=== PATIENT | female | born 1985 | race Caucasian/White ===

== ENCOUNTER → 2020-03-28 11:58 | Outpatient (BNVA) | payer MEDICAID, SELFPAY | PROVIDERS: Family Provider Family Medicine; PCP Family Medicine; Visit Provider Nurse Practitioner Family | DX: R39.9 Unspecified symptoms and signs involving the genitourinary system (principal) | CPT/HCPCS: 81000 ==

== ENCOUNTER 2022-03-11 19:27 | Emergency (ER) | payer MEDICAID, SELFPAY ==
[2022-03-11 19:28] VITALS: BMI 22.4
[2022-03-11 19:32] VITALS: BP 129/82; PULSE 90; RESP 16; TEMP 37.1; O2SAT 98
--- NOTE | 2022-03-11 19:39 | XRR_ITS ---
PROCEDURE INFORMATION: Exam: XR Chest Exam date and time: 03/11/2022 7:50 PM Age: 37 years old Clinical indication: Patient HX: Fentanyl overdose. TECHNIQUE: Imaging protocol: Radiologic exam of the chest. Views: 1 view. COMPARISON: CR Chest 2 views* [id number] 12/08/2018 8:29 AM FINDINGS: Lungs: No consolidation. Pleural spaces: Unremarkable. No pleural effusion. No pneumothorax. Heart/Mediastinum: No cardiomegaly. Bones/joints: No acute findings. XR/XR chest 1V portable [id number] IMPRESSION: No acute findings.
--- NOTE | 2022-03-11 19:39 | ECG_ITS ---
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 Measurements Intervals [place] Rate: 87 P: 78 AR: 183 QRS: 76 QRSD: 97 T: 50 QT: 379 QTc: 456 Interpretive Statements SINUS RHYTHM ANTEROSEPTAL MYOCARDIAL INFARCTION , OF INDETERMINATE AGE [40+ ms Q WAVE IN V1-V4] INTERPRETATION BASED ON A DEFAULT AGE OF 40 YEARS No previous ECG available for comparison Electronically Signed On 03-12-2022 9:31:01 CDT by Samy Wells M.D. [id number] f
[2022-03-11] MEDS: ondansetron 2 mg/ML SDV 2 mL 4 MG IVP (19:51)
[2022-03-11] MEDS: sodium chloride 0.9% 1,000 ML 999 ML IV (19:51)
[2022-03-11 20:14] LABS: Alanine Aminotransferase 27 U/L (0-33); Albumin Level 3.9 g/dL (3.5-5.2); Alkaline Phosphatase 69 IU/L (35-105); Blood Urea Nitrogen 13 mg/dL (6-20); Calcium 8.5 mg/dL (8.5-10.5); Carbon Dioxide 27 mmol/L (22-29); Chloride 100 mmol/L (98-107); Globulin 2.5 g/dL (1.3-4.6); Glomerular Filtration Rate 80.3 mL/min (90-130); Glucose 127 mg/dL (65-115); Osmolality Calculated 290 mOsm/kg (285-295); Sodium 139 mmol/L (136-145); Total Bilirubin 0.2 mg/dL (0.15-1.2); Total Protein 6.4 g/dL (6.6-8.7)
[2022-03-11 20:15] LABS: Alcohol Level < 10 mg/dL (0-10); Anion Gap 16.1 (5-19); Aspartate Amino Transferase 22 U/L (0-32); Potassium 4.1 mmol/L (3.5-5.1)
[2022-03-11 20:41] LABS: HCG, Serum Qual Negative (Negative)
[2022-03-11 20:43] VITALS: BP 113/69; PULSE 67; RESP 19; O2SAT 96
[2022-03-11 21:41] VITALS: BP 122/81; PULSE 71; RESP 14; O2SAT 96
--- NOTE | 2022-03-11 22:16 | ED_ITS ---
HPI - Overdose General: Chief Complaint: Overdose Stated Complaint: Overdose Time Seen by Provider: 03/11/22 19:31 Source: patient and EMS History of Present Illness: 37-year-old female brought in by EMS. She was found not responding in her car at a local gas station. She essentially overdosed on fentanyl. She was evidently breathing but not responding. She did not initially respond to 0.4 mg of Narcan, but did respond to 1.6 mg total. She presents lethargic but talking appropriately, and oxygenating well. She denies wishes or thoughts to hurt herself. She was using the drug recreationally. complaint: accidental overdose Onset (ago): minute(s) Intent: other Context: Accidental Overdose: wanted to get high Treatments Prior to Arrival: oxygen, narcan and IV fluids Review of Systems Const: Denies: fever(s) ENMT: Denies: throat pain or nasal discharge Card: Denies: chest pain Resp: Denies: dyspnea GI: Reports: nausea; Denies: vomiting Neuro: Reports: headache(s) PFS ED PFSH: Social History Smoking and tobacco status: current every day smoker cigarettes and e-cigare ttes E-Cigarette Details: vaporizer device Alcohol intake: never History of recent travel: No Female Reproductive History: Date of last menstrual period: 02/24/20 Physical Exam Const: GENERAL APPEARANCE: cooperative and ill appearing (Mildly) NUTRITIONAL APPEARANCE: thin HENMT: COMMON NORMALS: normocephalic, atraumatic and Normal external nose present HEAD & SCALP: normocephalic and atraumatic FACE & SINUS: normal facial exam and face symmetric NOSE: Normal external nose present and Normal nares present Eye: COMMON NORMALS: Equal, round and reactive pupils present and EOMs intact bilaterally PUPIL: Yes Equal, round and reactive pupils present Neck/C-Spine: GENERAL: Yes trachea midline Chest: COMMONS NORMALS: normal inspection of the chest CHEST: Yes Symmetrical chest wall rise Resp: COMMON NORMALS: normal respiratory effort, No use of accessory muscles and clear to auscultation bilaterally AUSCULTATION: clear to auscultation bilaterally Cardio: COMMON NORMALS: regular rate and regular rhythm RATE: regular rate RHYTHM: regular rhythm GI: COMMON NORMALS: Normal to inspection, nondistended, normoactive bowel sounds present, Soft to palpation and non-tender PALPATION: Yes Soft to palpation Extremity: COMMON NORMALS: capillary refill normal and no pedal edema Neuro: RENETTA COMA SCALE: document GCS findings [place] coma scale eye opening: Spontaneous Renetta coma scale verbal response: Orientated Renetta coma scale motor response: Obey commands Renetta coma scale total score: 15 CRANIA L NERVES: Yes CN normal except as noted SPEECH: speech normal Psych: COMMON NORMALS: cooperative Course Vital Signs: Vital signs: Vital Signs Temperature 98.8 F 03/11/22 19:32 Pulse Rate 71 03/11/22 21:41 Respiratory Rate 14 03/11/22 21:41 Blood Pressure 122/81 03/11/22 21:41 Pulse Oximetry 96 03/11/22 21:41 Oxygen Delivery Me thod 03/11/22 21:41 Oxygen Flow Rate 2 03/11/22 21:41 MDM - Overdose Medical Decision Making No repeated dosages of Narcan required. Patient is not requiring oxygen. Current saturations 97%, heart rate sinus at 70. EKG shows no acute ST changes. Normal axis and intervals. Last blood pressure is 122/81. BMP is normal. She maintains that she was not trying to harm her self. She will be allowed discharge in the custody of a sober adult Lab Data : 03/11/22 21:50 03/11/22 19:45 Radiology Impressions Chest X-Ray 03/11/22 19:39 IMPRESSION: No acute findings. Laboratory Results WBC Cancelled 03/11/22 21:39 Corrected WBC Cancelled 03/11/22 21:39 RBC Cancelled 03/11/22 21:39 Hgb Cancelled 03/11/22 21:39 Hct Cancelled 03/11/22 21:39 MCV Cancelled 03/11/22 21:39 MCH Cancelled 03/11/22 21:39 MCHC Cancelled 03/11/22 21:39 RDW Cancelled 03/11/22 21:39 Plt Count Cancelled 03/11/22 21:39 MPV Cancelled 03/11/22 21:39 Gran % Cancelled 03/11/22 21:39 Neut % (Auto) Cancelled 03/11/22 21:39 Lymph % (Auto) Cancelled 03/11/22 21:39 [place] % (Auto) Cancelled 03/11/22 21:39 Eos % (Auto) Cancelled 03/11/22 21:39 Baso % (Auto) Cancelled 03/11/22 21:39 Neut # (Auto) Cancelled 03/11/22 21:39 Lymph # (Auto) Cancelled 03/11/22 21:39 [place] # (Auto) Cancelled 03/11/22 21:39 Eos # (Auto) Cancelled 03/11/22 21:39 Baso # (Auto) Cancelled 03/11/22 21:39 Absolute Gran (auto) Cancelled 03/11/22 21:39 Nucleated RBC % (auto) Cancelled 03/11/22 21:39 Nucleated RBCs # Cancelled 03/11/22 21:39 Sodium 139 mmol/L (136-145) 03/11/22 19:45 Potassium 4.1 mmol/L (3.5-5.1) 03/11/22 19:45 Chloride 100 mmol/L (98-107) 03/11/22 19:45 Carbon Dioxide 27 mmol/L (22-29) 03/11/22 19:45 Anion Gap 16.1 (5-19) 03/11/22 19:45 BUN 13 mg/dL (6-20) 03/11/22 19:45 Creatinine 0.8 mg/dL (0.5-0.9) 03/11/22 19:45 GFR Calculation 80.3 mL/min (90-130) L 03/11/22 19:45 Glucose 127 mg/dL (65-115) H 03/11/22 19:45 Calculated Osmolality 290 mOsm/kg (285-295) 03/11/22 19:45 Calcium 8.5 mg/dL (8.5-10.5) 03/11/22 19:45 Total Bilirubin 0.2 mg/dL (0.15-1.2) 03/11/22 19:45 AST 22 U/L (0-32) 03/11/22 19:45 ALT 27 U/L (0-33) 03/11/22 19:45 Alkaline Phosphatase 69 IU/L (35-105) 03/11/22 19:45 Total Protein 6.4 g/dL (6.6-8.7) L 03/11/22 19:45 Albumin 3.9 g/dL (3.5-5.2) 03/11/22 19:45 Globulin 2.5 g/dL (1.3-4.6) 03/11/22 19:45 HCG, Qual Negative (Negative) 03/11/22 20:22 Ethyl Alcohol < 10 mg/dL (0-10) 03/11/22 19:45 Discharge Plan Discharge Patient Disposition: Home Clinical Impression: Opiate or related narcotic overdose Qualifiers: Encounter type: initial encounter Injury intent: accidental or unintentional Qualified Code(s): T40.601A - Poisoning by unspecified narcotics, accidental (unintentional), initial encounter Condition: Stable Prescriptions: New naloxone 4 mg/actuation spray,non-aerosol 4 mg intranasal Q2M PRN (Reason: opioid overdose) Qty: 2 0RF Rx Instructions: spray 1 dose into ONE nostril; alternate nostrils w each dose until help arrives No Action clonidine HCl 0.1 mg tablet 0.1 mg PO TID eszopiclone [Lunesta] 3 mg tablet PO .nightly dextroamphetamine-amphetamine [Adderall] 20 mg tablet 20 mg PO DAILY ciprofloxacin HCl [Cipro] 250 mg tablet 250 mg PO BID 5 Days Qty: 10 0RF Discharge Orders: Discharge ED (Routine); Ordered 03/11/22 Ordered By: Kenny Ronquillo Referrals: Lolis Taylor DO [Primary Care Provider] - 1-3 days Discharge Diet: Advance as tolerated Discharge Activity: Increase activity as tolerated Patient Instructions: Prescription Opioid Overdose (ED), Opioid Safety Activity Restrictions/Additional Instructions: Return for any problems. Return for any thoughts or wishes to harm your self or anyone else. Coding Level of Care Code ED Dosimetrist for Martin Cramer
--- NOTE | 2022-03-11 22:31 | PC.NURSE ---
Asked pt who I should contact to pick her up from the ED, she advised her boyfriend, Hong, . Attempted to call Hong X2, no answer and no voicemail to leave a message. Tried to call son, Ilan, but phone number listed is not an active number
[2022-03-11 22:33] VITALS: BP 123/89; PULSE 109; RESP 13; O2SAT 97
--- NOTE | 2022-03-11 22:41 | PC.NURSE ---
Attempted to call pt son, Desean, , male voice answered but disconnected after I identified myself. Attempted to call back multiple times, no answer, not able to leave a voicemail
[2022-03-11 22:46] LABS: Basophils % 0.1 %; Eosinophils # 0.1 10^3/uL (0.0-0.8); Eosinophils % 0.7 %; Hematocrit 32.4 % (37.0-47.0); Hemoglobin 11.1 g/dL (11.5-15.3); Lymphocytes # 0.9 10^3/uL (0.8-4.8); Lymphocytes % 12.9 %; Mean Corpuscular HGB Conc 34.3 g/dL (30.0-36.0); Mean Corpuscular Hemoglobin 30.2 pg (28.0-34.0); Mean Corpuscular Volume 88.3 fl (81-99); Monocytes # 0.4 10^3/uL (0.2-0.9); Monocytes % 5.6 %; Neutrophils # 5.49 10^3/uL (1.8-7.7); Neutrophils % 80.4 %; Nucleated Red Blood Cells % 0 %; Platelet Count 100 10^3/cmm (130-400); Red Blood Count 3.67 10^6/uL (4.1-5.3); Red Cell Distribution Width 13.2 % (12.1-15.1); White Blood Count 6.8 10^3/uL (4.0-10.0)
[2022-03-11 22:47] LABS: Slide Review Slide Review Perform
--- NOTE | 2022-03-11 22:47 | PC.NURSE ---
Pt fer Anton called back to ED, advised he or Hong will come to supervisor of operations pt
--- NOTE | 2022-03-11 22:54 | PC.NURSE ---
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
[2022-03-11 23:10] VITALS: BP 148/97; PULSE 85; RESP 16; O2SAT 96
== END 2022-03-11 23:11 | disposition home or self-care (01) ==
PROVIDERS: Emergency Provider Emergency Medicine; PCP Family Medicine
DX: T40.411A Poisoning by fentanyl or fentanyl analogs, accidental (unintentional), initial encounter (principal); F17.290 Nicotine dependence, other tobacco product, uncomplicated
CPT/HCPCS: 71045; 80053; 80307; 84703; 85025; 93005; 96361; 96374; 99285; J2405; J7030

== ENCOUNTER → 2023-04-16 09:17 | Outpatient (BNVA) | payer MEDICAID, SELFPAY | PROVIDERS: PCP Family Medicine; Visit Provider Nurse Practitioner Family | DX: R68.89 Other general symptoms and signs (principal); J00 Acute nasopharyngitis [common cold]; H69.93 Unspecified Eustachian tube disorder, bilateral | CPT/HCPCS: 87426 ==

== ENCOUNTER → 2023-09-08 14:07 | Outpatient (BNVA) | payer MEDICAID, SELFPAY | PROVIDERS: PCP Family Medicine; Visit Provider Nurse Practitioner Family | DX: N39.0 Urinary tract infection, site not specified (principal); R10.9 Unspecified abdominal pain | CPT/HCPCS: 81000; 87086 ==

== ENCOUNTER 2023-11-19 17:37 | Emergency (ER) | payer MEDICAID, SELFPAY ==
[2023-11-19 17:38] VITALS: BMI 24.3
[2023-11-19 17:44] VITALS: BP 117/82; PULSE 87; RESP 16; TEMP 36.9; O2SAT 98
--- NOTE | 2023-11-19 17:51 | ECG_ITS ---
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 Measurements Intervals [place] Rate: 68 P: 70 MT: 168 QRS: 54 QRSD: 109 T: 49 QT: 368 QTc: 391 Interpretive Statements SINUS RHYTHM INCOMPLETE RIGHT BUNDLE BRANCH BLOCK [90+ ms QRS DURATION, TERMINAL R IN V1/V2, 40+ ms S IN I/aVL/V4/V5/V6] Possible old septal DC MINIMAL ST DEPRESSION [0.025+ mV ST DEPRESSION] Compared to ECG 03/11/2022 19:39:34 Incomplete right bundle-branch block now present ST (T wave) deviation now present Myocardial infarct finding no longer present Electronically Signed On 11-19-2023 21:29:11 CDT by Delphine Ruffin M.D. [id number]
--- NOTE | 2023-11-19 17:51 | CTR_ITS ---
PROCEDURE INFORMATION: Exam: CT Lumbar Spine Without Contrast Exam date and time: 11/19/2023 7:30 PM Age: 38 years old Clinical indication: Low back pain; Additional info: Back pain, urinary incontinence TECHNIQUE: Imaging protocol: Computed tomography of the lumbar spine without contrast. Radiation optimization: All CT scans at this facility use at least one of these dose optimization techniques: automated exposure control; mA and/or kV adjustment per patient size (includes targeted exams where dose is matched to clinical indication); or iterative reconstruction. COMPARISON: No relevant prior studies available. RADIATION DOSE METRICS: Total DLP (mGy-cm): 360.96 FINDINGS: Bones/joints: No acute fracture. Normal alignment. Degenerative disc disease at L5-S1. No severe spinal canal stenosis. No significant neural foraminal narrowing. Kidneys and ureters: A couple punctate nonobstructing stones noted in the right kidney. Soft tissues: Unremarkable. CT/CT lumbar spine wo con* [id number] IMPRESSION: 1. No acute findings. 2. A couple punctate nonobstructing stones noted in the right kidney.
--- NOTE | 2023-11-19 17:52 | XRR_ITS ---
PROCEDURE INFORMATION: Exam: XR Chest Exam date and time: 11/19/2023 6:46 PM Age: 38 years old Clinical indication: Other: Drowsiness; Additional info: AMS TECHNIQUE: Imaging protocol: Radiologic exam of the chest. Views: 1 view. COMPARISON: CR XR chest 1V portable [id number] 03/11/2022 7:50 PM FINDINGS: Lungs: Unremarkable. No consolidation. Pleural spaces: Unremarkable. No pleural effusion. No pneumothorax. Heart/Mediastinum: Unremarkable. No cardiomegaly. Bones/joints: Unremarkable. XR/XR chest 1V portable [id number] IMPRESSION: No acute findings.
--- NOTE | 2023-11-19 17:52 | CTR_ITS ---
PROCEDURE INFORMATION: Exam: CT Head Without Contrast Exam date and time: 11/19/2023 7:27 PM Age: 38 years old Clinical indication: Altered mental status/memory loss; Additional info: AMS TECHNIQUE: Imaging protocol: Computed tomography of the head without contrast. Radiation optimization: All CT scans at this facility use at least one of these dose optimization techniques: automated exposure control; mA and/or kV adjustment per patient size (includes targeted exams where dose is matched to clinical indication); or iterative reconstruction. COMPARISON: CR XR cervical spine 3V* [id number] 12/08/2018 8:29 AM RADIATION DOSE METRICS: Total DLP (mGy-cm): 1075.88 FINDINGS: Brain: Left frontal lobe white matter somewhat localized decreased attenuation with some subtle hyperdensity of the overlying cortical douglas matter, findings are concerning for an underlying mass with vasogenic edema. Additional considerations may include an infarct, age indeterminate, please correlate with clinical history. Further evaluation with MRI advised. The cortical hyperdensity likely reflects some subtle calcification as opposed to blood products, MRI could further characterize this as well. Cerebral ventricles: No ventriculomegaly. Paranasal sinuses: Visualized sinuses are unremarkable. No fluid levels. Mastoid air cells: Visualized mastoid air cells are well aerated. Bones/joints: Unremarkable. No acute fracture. Soft tissues: Unremarkable. CT/CT head wo con* [id number] IMPRESSION: Left frontal lobe white matter somewhat localized decreased attenuation with some subtle hyperdensity of the overlying cortical douglas matter, findings are concerning for an underlying mass with vasogenic edema. Additional considerations may include an infarct, age indeterminate, please correlate with clinical history. Further evaluation with MRI advised. The cortical hyperdensity likely reflects some subtle calcification as opposed to blood products, MRI could further characterize this as well.
--- NOTE | 2023-11-19 17:54 | ED_ITS ---
HPI - Altered Mental Status 2 General: Chief Complaint: Back Pain/Injury Stated Complaint: Back Pain Time Seen by Provider: 11/19/23 17:38 Source: patient and EMS Mode of arrival: EMS Limitations: altered mental status History of Present Illness: Patient is a 38-year-old female with no known past medical history here via EMS for altered mental status. Patient is unable to provide any relevant history at this time. According to EMS, patient's son came home from college and stated that his mother was altered. She reportedly has not been out of bed in weeks . She is extremely odorous and disheveled upon arrival. She smells of urine. She reportedly has been incontinent in her bed. Patient has a history of chronic lower back pain. She states pain today is worse. Patient can tell me her name and date of . She knows she is at [facility]. She cannot tell me her address. She can tell me 2 out of the 3 names of her sons. Most of her answers are I don't know . Denies alcohol use. States she hasn't used drugs in years but used to use heroin-was here in 2021 for a fentanyl overdose. Son later arrives and states he has been home for three days from college and has not seen his mom leave the bed in that time. He confirms she has been urinating and defecating on herself during this time. He thought it was secondary to her back pain. He had recommended medical evaluation prior to today but she had declined. He does state as recently as a few weeks ago she was attending physical therapy and driving herself to these appointments. She reportedly has a referral from her PCP Dr. Taylor to see Dr. Rogel for memory issues although she cannot elaborate on this any further. Patient seems slightly more coherent during re-evaluation. She states she has essentially been bed bound for 10 days but again tells me I do not know why . I was able to dig through documentation in her chart and found scanned in documentation regarding her referral to Dr. Rogel. It looks like on 10/16 Dr. Taylor placed the referral for 1) stroke like symptoms 2) urinary incontinence in female and 3) weakness bilateral lower extremities. It looks like this appointment is scheduled for 01/09. Problem lists were also included in these documents and she has quite an extensive psychiatric history including ADHD, bipolar, history of drug use, borderline personality disorder, depression, anxiety, PTSD, psychosis, as well as RLS, insomnia, and lumbosacral issues. Current med list as of last month was Ambien, Gabapentin, Meloxicam, Subutex, Adderall. MD complaint: altered mental status and confusion Onset (ago): unknown Timing confirmed by: family member Severity: severe Review of Systems 2 General: Reports: ROS unobtainable due to medical condition and ROS unobtainable due to mental status PFSH ED 2 PFSH: Social History Smoking and tobacco/nicotine status: current every day tobacco/nicotine user cigarettes and e-cigarettes E-Cigarette Details: vaporizer device Alcohol intake: never Substance/Drug Use: never Physical Exam 2 Const: COMMON NORMALS: alert EXAM LIMITATIONS: altered mental status G ENERAL APPEARANCE: cooperative, disheveled and other (odorous, dirty; urine soaked/dirt vs fecal matter to feet) ORIENTATION/CONSCIOUSNESS: Yes awake, Yes oriented to person, Yes oriented to place and Yes confused HENMT: COMMON NORMALS: normocephalic and atraumatic HEAD & SCALP: normal to inspection, normocephalic and atraumatic FACE & SINUS: normal facial exam Eye: GENERAL EYE: appearance normal, both eyes and all related structures Neck/C-Spine: COMMON NORMALS: no lymphadenopathy and no meningeal signs Resp: COMMON NORMALS: normal respiratory effort and clear to auscultation bilaterally AUSCULTATION: clear to auscultation bilaterally Cardio: COMMON NORMALS: regular rate and regular rhythm RATE: regular rate RHYTHM: regular rhythm GI: COMMON NORMALS: Normal to inspection, nondistended, normoactive bowel sounds present, Soft to palpation and non-tender PALPATION: Yes Soft to palpation Back/Pelvis: THORACIC SPINE/UPPER BACK: No thoracic spinal tenderness, No paraspinal muscle tenderness and No paraspinal muscle spasm LUMBAR SPINE/LOWER BACK: Yes lumbar spinal tenderness and No paraspinal muscle tenderness PELVIS: Yes buttocks normal and No sciatic notch tenderness S ACRUM: no tenderness COCCYX: no tenderness Extremity: COMMON NORMALS: no clubbing, cyanosis or edema, no calf tenderness and no pedal edema NARRATIVE EXTREMITY EXAM: legs are cool to the touch; she is not wearing clothes to her lower half-just has a blanket from home on her GENERAL: Yes normal exam except as noted Neuro: RENETTA COMA SCALE: document GCS findings Renetta coma scale eye opening: Spontaneous [place] coma scale verbal response: Orientated [place] coma scale motor response: Obey commands [place] coma scale total score: 15 COMMON NORMALS: moves all extremities and no focal motor deficits S ENSORIUM/ORIENTATION: Yes alert, Yes oriented to person and Yes oriented to place MENINGEAL SIGNS: Yes no meningeal signs OTHER: can barely lift bilateral lower extremities off the table but if I passively lift them and with coaching she can keep them elevated for 5+ seconds Skin: COMMON NORMALS: no rashes or lesions noted GENERAL SKIN EXAM: no rashes or lesions noted Course 2 ED course: Attempted records from [facility] for better insight into patient's presentation today but patient's PCP clinic is closed and she has no recent ED records through them. Consultations: Consultation #1: Dr. Leonard-discussed possibility of obs admit and get MRI tomorrow; he would like me to consult with neurology to make sure they feel comfortable with patient staying here due to concern for possible vasogenic edema on CT scan Consultation #2: Dr. Jasmine-recommends transfer as we do not have neurosurgery coverage here Consultation #3: Dr. Sanders-[facility] neurosurgery-recommends ED to ED transfer; ED physician accepting transfer is Dr. Currie Vital Signs: Vital signs: Vital Signs Temperature 98.5 F 11/19/23 17:44 Pulse Rate 82 11/19/23 22:36 Respiratory Rate 16 11/19/23 22:36 Blood Pressure 108/66 11/19/23 22:36 Pulse Oximetry 96 11/19/23 21:11 Oxygen Delivery Me thod Room Air 11/19/23 18:41 MDM - Altered Mental Status Medical Decision Making Patient arrives to the ED via EMS for altered mental status, back pain, inability or unwillingness to care for herself at home. She was worked up for an altered mental status as, upon arrival, she could not answer a large majority of my questions. Her mentation did improve during her stay. She was actually able to ambulate with a walker here without much difficulty. I questioned patient extensively as to why over the last 10 days she has not gotten out of bed when she obviously has the physical ability to do so. Most of her answers are I do not know . It seems puzzling that until 10 days ago she was attending physical therapy and driving herself to these appointments however since that time she has essentially been in bed urinating and defecating on herself. She does have quite an extensive psychiatric history. Her labs here all are surprisingly fairly normal. Drug screen is positive for marijuana. Head CT ordered for evaluation of AMS. Head showing a left frontal lobe abnormality that the radiologist stated was concerning for an underlying mass with vasogenic edema. I spoke to the hospitalist here who wanted neurology on board to admit her for MRI imaging in the morning. I spoke to Dr. Jasmine who recommended transferring patient as he felt like this sounded like a tumor and we have neurosurgery coverage. Remainder of ED work up including CT lumbar spine negative. Son did have MRI of lumbar spine from less than 2 months ago on phone and results are fairly benign. I have spoken to [facility] neurosurgeon Dr. Sanders who recommends ED to ED transfer. ED physician accepting is Dr. Currie. Dr. Grove here aware of patient and agrees with care plan. Differential Diagnosis Likely altered mental status Medical Records I reviewed the patient's medical records. Lab Data 11/19/23 18:40 11/19/23 18:40 Radiology Impressions Lumbar Spine CT 11/19/23 17:51 IMPRESSION: 1. No acute findings. 2. A couple punctate nonobstructing stones noted in the right kidney. Chest X-Ray 11/19/23 17:52 IMPRESSION: No acute findings. Head CT 11/19/23 17:52 IMPRESSION: Left frontal lobe white matter somewhat localized decreased attenuation with some subtle hyperdensity of the overlying cortical douglas matter, findings are concerning for an underlying mass with vasogenic edema. Additional considerations may include an infarct, age indeterminate, please correlate with clinical history. Further evaluation with MRI advised. The cortical hyperdensity likely reflects some subtle calcification as opposed to blood products, MRI could further characterize this as well. Laboratory Results WBC 6.75 10^3/uL (3.29-11.43) 11/19/23 18:40 RBC 5.76 10^6/uL (3.85-5.65) H 11/19/23 18:40 Hgb 14.50 g/dL (11.27-16.99) 11/19/23 18:40 Hct 46.4 % (36-47) 11/19/23 18:40 MCV 80.6 fl (85-98) L 11/19/23 18:40 MCH 25.2 pg (27-33) L 11/19/23 18:40 MCHC 31.3 g/dL (30-55) 11/19/23 18:40 RDW 15.8 % (12.1-15.1) H 11/19/23 18:40 Plt Count 229 10^3/cmm (157-399) 11/19/23 18:40 MPV 10.6 fL (7.4-10.4) H 11/19/23 18:40 Neut % (Auto) 71.7 % 11/19/23 18:40 Lymph % (Auto) 21.3 % 11/19/23 18:40 Boundary % (Auto) 5.0 % 11/19/23 18:40 Eos % (Auto) 1.5 % 11/19/23 18:40 Baso % (Auto) 0.4 % 11/19/23 18:40 Neut # (Auto) 4.83 10^3/uL (1.8-7.7) 11/19/23 18:40 Lymph # (Auto) 1.4 10^3/uL (0.8-4.8) 11/19/23 18:40 Boundary # (Auto) 0.3 10^3/uL (0.2-0.9) 11/19/23 18:40 Eos # (Auto) 0.1 10^3/uL (0.0-0.8) 11/19/23 18:40 Baso # (Auto) 0.0 10^3/uL (0.0-0.1) 11/19/23 18:40 Nucleated RBC % (auto) 0 % 11/19/23 18:40 Nucleated RBCs # 0.0 /100WBC 11/19/23 18:40 Sodium 144 mmol/L (136-145) 11/19/23 18:40 Potassium 3.7 mmol/L (3.5-5.1) 11/19/23 18:40 Chloride 99 mmol/L (98-107) 11/19/23 18:40 Carbon Dioxide 31 mmol/L (22-29) H 11/19/23 18:40 Anion Gap 17.7 (5-19) 11/19/23 18:40 BUN 14 mg/dL (6-20) 11/19/23 18:40 Creatinine 0.7 mg/dL (0.5-0.9) 11/19/23 18:40 GFR Calculation 93.2 mL/min (90-130) 11/19/23 18:40 Glucose 97 mg/dL (65-115) 11/19/23 18:40 Calculated Osmolality 298 mOsm/kg (285-295) H 11/19/23 18:40 Lactic Acid 1.2 mmol/L (0.5-2.2) 11/19/23 18:40 Calcium 10.1 mg/dL (8.5-10.5) 11/19/23 18:40 Total Bilirubin 0.4 mg/dL (0.15-1.2) 11/19/23 18:40 AST 24 U/L (0-32) 11/19/23 18:40 ALT 15 U/L (0-33) 11/19/23 18:40 Alkaline Phosphatase 97 U/L (35-105) 11/19/23 18:40 Creatine Kinase 87 U/L (26-192) 11/19/23 18:40 Total Protein 9.3 g/dL (6.6-8.7) H 11/19/23 18:40 Albumin 4.1 g/dL (3.5-5.2) 11/19/23 18:40 Globulin 5.2 g/dL (1.3-4.6) H 11/19/23 18:40 Procalcitonin 0.14 ng/mL (0-0.5) 11/19/23 18:40 TSH 0.68 uIU/mL (0.27-4.20) 11/19/23 18:40 HCG, Qual Negative (Negative) 11/19/23 18:40 Urine Color Yellow (Yellow) 11/19/23 19:18 Urine Appearance Clear (CLEAR) 11/19/23 19:18 Urine pH 6 (5-7) 11/19/23 19:18 Ur Specific [place] 1.025 (1.005-1.030) 11/19/23 19:18 Urine Protein Neg (Negative) 11/19/23 19:18 Urine Glucose (UA) Norm (Normal) 11/19/23 19:18 Urine Ketones 1+ (Negative) H 11/19/23 19:18 Urine Blood Neg (Negative) 11/19/23 19:18 Urine Nitrate Negative (Negative) 11/19/23 19:18 Urine Bilirubin Neg (Negative) 11/19/23 19:18 Urine Urobilinogen 1 mg/dL (Negative) H 11/19/23 19:18 Ur Leukocyte Esterase Trace (Negative) H 11/19/23 19:18 Urine RBC None /hpf (0-2) 11/19/23 19:18 Urine WBC 5-10 /hpf (0-5) H 11/19/23 19:18 Ur Squamous Epith Cells 0-4 /hpf (0-5) H 11/19/23 19:18 Ur Transition Epith Cell 0-4 /hpf 11/19/23 19:18 Ur Renal Epithelial Cell 0-4 /hpf 11/19/23 19:18 Amorphous Sediment Not Reportable 11/19/23 19:18 Urine Bacteria None /hpf (NONE) 11/19/23 19:18 Urine Mucus 2+ /hpf 11/19/23 19:18 Salicylates < 0.3 mg/dL (3-10) L 11/19/23 18:40 Urine Opiates Screen Negative ng/mL (Negative) 11/19/23 19:18 Acetaminophen < 5.0 ug/mL (10-30) L 11/19/23 18:40 Ur Barbiturates Screen Negative ng/mL (Negative) 11/19/23 19:18 Ur Phencyclidine Scrn Negative ng/mL (Negative) 11/19/23 19:18 Ur Amphetamines Screen Negative ng/mL (Negative) 11/19/23 19:18 U Benzodiazepines Scrn Negative ng/mL (Negative) 11/19/23 19:18 Urine Cocaine Screen Negative ng/mL (Negative) 11/19/23 19:18 U Marijuana (THC) Screen Positive ng/mL (Negative) H 11/19/23 19:18 Ethyl Alcohol < 10 mg/dL (0-10) 11/19/23 18:40 All radiology interpretation(s) finalized by discharge Discharge Plan Discharge Patient Disposition: Xfer Short-Term Hosp Clinical Impression: Alteration in self-care ability, Mass of left frontal lobe Condition: Stable Referrals: Lolis Taylor DO [Primary Care Provider] - Coding Level of Care Code ED Administrative Underwriter for Martin Cramer
[2023-11-19 18:41] VITALS: BP 113/80; PULSE 78; O2SAT 100
[2023-11-19] MEDS: sodium chloride 0.9% 1,000 ML 999 ML IV (18:44)
[2023-11-19 19:09] LABS: Lactic Sepsis W/Reflex 1.2 mmol/L (0.5-2.2)
[2023-11-19 19:15] LABS: HCG, Serum Qual Negative (Negative)
[2023-11-19 19:20] LABS: Procalcitonin 0.14 ng/mL (0-0.5); Thyroid Stimulating Hormone 0.68 uIU/mL (0.27-4.20)
--- NOTE | 2023-11-19 19:23 | PC.NURSE ---
R sided femoral, popliteal, and posterior tibial pulses doppled. L sided femoral, popliteal, and posterior tibial pulses doppled. Sensation intact in both legs and feet. pt able to draw knees up to chest and put legs back down without difficulty. pt able to follow commands quickly.
[2023-11-19 19:33] LABS: Alanine Aminotransferase 15 U/L (0-33); Albumin Level 4.1 g/dL (3.5-5.2); Alkaline Phosphatase 97 U/L (35-105); Anion Gap 17.7 (5-19); Aspartate Amino Transferase 24 U/L (0-32); Blood Urea Nitrogen 14 mg/dL (6-20); Calcium 10.1 mg/dL (8.5-10.5); Carbon Dioxide 31 mmol/L (22-29); Chloride 99 mmol/L (98-107); Creatine Phosphokinase 87 U/L (26-192); Creatinine Clr Calc Pharmacy 118.6522; Globulin 5.2 g/dL (1.3-4.6); Glomerular Filtration Rate 93.2 mL/min (90-130); Glucose 97 mg/dL (65-115); Osmolality Calculated 298 mOsm/kg (285-295); Potassium 3.7 mmol/L (3.5-5.1); Sodium 144 mmol/L (136-145); Total Bilirubin 0.4 mg/dL (0.15-1.2); Total Protein 9.3 g/dL (6.6-8.7)
[2023-11-19 19:34] LABS: Acetaminophen < 5.0 ug/mL (10-30); Alcohol Level < 10 mg/dL (0-10); Salicylate < 0.3 mg/dL (3-10)
[2023-11-19 19:37] LABS: Add Urine Microscopic? YES; Bilirubin Urine Neg (Negative); Blood Urine Neg (Negative); Glucose Urine UA Norm (Normal); Ketones Urine 1+ (Negative); Leukocyte Esterase Urine Trace (Negative); Nitrate Urine Negative (Negative); Protein Urine Neg (Negative); Specific Gravity, Urine 1.025 (1.005-1.030); Urine Appearance Clear (CLEAR); Urine Color Yellow (Yellow); Urobilinogen Urine 1 mg/dL (Negative); pH Urine 6 (5-7)
[2023-11-19 19:42] LABS: Basophils % 0.4 %; Eosinophils # 0.1 10^3/uL (0.0-0.8); Eosinophils % 1.5 %; Hematocrit 46.4 % (36-47); Lymphocytes # 1.4 10^3/uL (0.8-4.8); Lymphocytes % 21.3 %; Mean Corpuscular HGB Conc 31.3 g/dL (30-55); Mean Corpuscular Hemoglobin 25.2 pg (27-33); Mean Corpuscular Volume 80.6 fl (85-98); Mean Platelet Volume 10.6 fL (7.4-10.4); Monocytes # 0.3 10^3/uL (0.2-0.9); Neutrophils # 4.83 10^3/uL (1.8-7.7); Neutrophils % 71.7 %; Nucleated Red Blood Cells % 0 %; Platelet Count 229 10^3/cmm (157-399); Red Blood Count 5.76 10^6/uL (3.85-5.65); Red Cell Distribution Width 15.8 % (12.1-15.1); White Blood Count 6.75 10^3/uL (3.29-11.43)
[2023-11-19 19:43] LABS: Amphetamines Screen Urine Negative (Negative); Barbiturates Screen Urine Negative (Negative); Benzodiazepines Screen Urine Negative (Negative); Cocaine Screen Urine Negative (Negative); Opiate Screen Urine Negative (Negative); PCP Screen Urine Negative (Negative); THC Screen Urine Positive (Negative)
--- NOTE | 2023-11-19 19:44 | PC.NURSE ---
pt able to ambulate to exit door and back with walker without assistance from RN. RN walked beside pt. pt able to get self back into bed and cover up without help.
[2023-11-19 19:45] VITALS: BP 118/71; PULSE 73; RESP 16; O2SAT 96
[2023-11-19 19:50] LABS: Add Urine Culture? No; Mucus Urine 2+ /hpf; Renal Epithelial Cells Urine 0-4 /hpf; Squamous Epithelial Cell Urine 0-4 /hpf (0-5); Transitional Epi Cells Urine 0-4 /hpf
[2023-11-19] MEDS: ketorolac 30 mg/mL INJ IVP (20:23)
[2023-11-19] MEDS: dexamethasone 4 mg/mL INJ 8 MG IVP (20:25)
[2023-11-19 21:11] VITALS: BP 126/79; PULSE 80; RESP 16; O2SAT 96
[2023-11-19 22:36] VITALS: BP 108/66; PULSE 82; RESP 16; O2SAT 98
[2023-11-20 00:09] VITALS: BP 108/66; PULSE 82; RESP 16; TEMP 36.9; O2SAT 98
== END 2023-11-19 23:05 | disposition short-term general hospital (02) ==
PROVIDERS: Emergency Provider Physician Assistant; PCP Family Medicine
DX: G93.89 Other specified disorders of brain (principal); Z74.1 Need for assistance with personal care; F17.210 Nicotine dependence, cigarettes, uncomplicated; F17.290 Nicotine dependence, other tobacco product, uncomplicated
CPT/HCPCS: 70450; 71045; 72131; 80053; 80306; 80307; 81001; 82550; 83605; 84145; 84443; 84703; 85025; 93005; 96374; 96375; 99285; J1100; J1885; J7030